=== PATIENT | female | born 1985 | race Caucasian/White ===

== ENCOUNTER → 2018-01-11 | Outpatient (CLI) | payer OTHER ==
[~2018-01-11] MED LIST: ADAL40PE2 INJ; ALPR0.25 PO; DOCU-180 PO; FLUT9.9S NS; MELA1TAB8 PO; MULT-658 PO; VALA500T4 PO
== END ==
LOC: STAR 15:17
PROVIDERS: ATTEND Otolaryngology
DX: Z02.9 Encounter for administrative examinations, unspecified (principal)

== ENCOUNTER 2018-01-17 05:20 | Day surgery (SDC) | payer OTHER ==
[~2018-01-17] VITALS: Ht 165.1 cm; Wt 62.7 kg
[2018-01-17 06:06] VITALS: BP 104/64
[2018-01-17] MEDS ORDERED: LACTATED RINGERS 1,000 ML IV SCH (06:06)
[2018-01-17] MEDS ORDERED: LIDOCAINE-MPF 1%, 5ML ONE (06:09)
[2018-01-17] MEDS ORDERED: OXYMETAZOLINE NASAL SPRAY 0.05%, 15ML ONE (06:10)
[2018-01-17] MEDS ORDERED: FLUORESCEIN SODIUM 500 MG/5 ML ONE (06:10)
[2018-01-17] MEDS ORDERED: EPINEPHRINE TOPICAL SOLN 1 MG/ML, 30ML ONE (06:10)
[2018-01-17] MEDS ORDERED: BACITRACIN OINT 500U/GM, 15 GM ONE (06:11)
[2018-01-17] MEDS ORDERED: BACITRACIN ZINC OINT 500U/GM, 0.9 GM ONE (06:11)
[2018-01-17] MEDS ORDERED: EPINEPHRINE 1 MG/ML, 1ML ONE (06:12)
[2018-01-17] MEDS ORDERED: LIDOCAINE/PF 1%, 30ML ONE (06:30)
[2018-01-17] MEDS ORDERED: MIDAZOLAM 1 MG/ML, 2ML ONE (06:47)
[2018-01-17] MEDS ORDERED: FENTANYL PF 250 MCG/5ML ONE (06:49)
[2018-01-17] MEDS ORDERED: GABAPENTIN 300 MG CAPSULE ONE (06:54)
[2018-01-17] MEDS ORDERED: SCOPOLAMINE PATCH, 1.5MG PATCH.TD72 TD ONE (06:54)
[2018-01-17] MEDS ORDERED: ACETAMINOPHEN 500 MG TABLET ONE (06:54)
[2018-01-17] MEDS ORDERED: NEOSTIGMINE 1 MG/ML, 10ML ONE (07:02)
[2018-01-17] MEDS ORDERED: DEXAMETHASONE 4 MG/ML, 1ML ONE (07:02)
[2018-01-17] MEDS ORDERED: CEFAZOLIN 1,000 MG ONE (07:02)
[2018-01-17] MEDS ORDERED: ONDANSETRON 2MG/ML, 2ML ONE (07:02)
[2018-01-17] MEDS ORDERED: PROPOFOL 10 MG/ML, 20ML ONE (07:02)
[2018-01-17] MEDS ORDERED: GLYCOPYRROLATE 0.2MG/1ML, 5ML ONE (07:02)
[2018-01-17] MEDS ORDERED: ROCURONIUM 10MG/ML,5ML ONE (07:02)
[2018-01-17] MEDS ORDERED: OXYcodone 5 MG/5 ML ORAL.SOL UDC PO PRN (08:00)
[2018-01-17] MEDS ORDERED: HYDROmorphone 1 MG/ML, 1ML IV PRN (08:00)
[2018-01-17] MEDS ORDERED: LABETALOL 5MG/ML, 20ML IV PRN (08:00)
[2018-01-17] MEDS ORDERED: LORazepam 2 MG/ML, 1ML IVPush PRN (08:00)
[2018-01-17] MEDS ORDERED: PROMETHAZINE 25 MG/ML, 1ML IV PRN (08:00)
[2018-01-17] MEDS ORDERED: ALBUTEROL SULFATE 2.5 MG/3 ML NPPB PRN (08:00)
[2018-01-17] MEDS ORDERED: MEPERIDINE/PF 25MG/0.5ML IVPush PRN (08:00)
[2018-01-17] MEDS ORDERED: hydrALAzine 20 MG/ML, 1ML IV PRN (08:00)
[2018-01-17] MEDS ORDERED: FENTANYL PF 100 MCG/2ML ONE (09:39)
[2018-01-17] MEDS ORDERED: OXYcodone 5 MG/5 ML ORAL.SOL UDC ONE (09:39)
[2018-01-17] MEDS: FENTANYL PF 100 MCG/2ML IV PRN ×3 (09:40→10:10)
== END 2018-01-17 11:45 ==
LOC: OUT 05:20
PROVIDERS: ATTEND Otolaryngology
DX: J32.4 Chronic pansinusitis (principal); J32.9 Chronic sinusitis, unspecified; J33.9 Nasal polyp, unspecified; F41.9 Anxiety disorder, unspecified; Z98.51 Tubal ligation status; Z72.89 Other problems related to lifestyle
CPT/HCPCS: 31240; 31257; 31267; 31276; 61782; 81025; 88304; 88305; J0171; J0690; J1100; J2250; J2405; J2704; J2710; J3010; J3490; J7120